=== PATIENT | male | born 1955 | race Caucasian/White ===

== ENCOUNTER 2017-07-27 07:34 | Emergency (ER) | payer OTHER ==
[~2017-07-27] VITALS: Ht 162.6 cm; Wt 100.0 kg
[~2017-07-27 07:34] MED LIST: ALLOPURINOL100 MG PO; ASPIRIN81 M1 PO; CRESTOR40 MG PO; PERCOCET 5/31 TABLET
[2017-07-27 09:38] VITALS: BP 131/88
== END 2017-07-27 09:43 | disposition home or self-care (01) ==
LOC: EME 07:34
PROC: 0HQ0XZZ Repair Scalp Skin, External Approach (ICD-10-PCS; principal; 2017-07-27)
DX: S01.01XA Laceration without foreign body of scalp, initial encounter (principal); I10 Essential (primary) hypertension; M10.9 Gout, unspecified; M19.90 Unspecified osteoarthritis, unspecified site; V43.52XA Car driver injured in collision with other type car in traffic accident, initial encounter; Y92.410 Unspecified street and highway as the place of occurrence of the external cause; Z79.82 Long term (current) use of aspirin; Z87.891 Personal history of nicotine dependence; Z87.442 Personal history of urinary calculi; Z88.0 Allergy status to penicillin
CPT/HCPCS: 70450; 72125; 99281; 99284

== ENCOUNTER 2017-08-11 09:12 | Emergency (ER) | payer OTHER ==
[~2017-08-11] VITALS: Ht 162.6 cm; Wt 101.7 kg
[2017-08-11 09:15] VITALS: BP 150/100
== END 2017-08-11 09:58 | disposition home or self-care (01) ==
LOC: EME 09:12
DX: S01.01XD Laceration without foreign body of scalp, subsequent encounter (principal); Z48.02 Encounter for removal of sutures; V89.2XXD Person injured in unspecified motor-vehicle accident, traffic, subsequent encounter; Z87.891 Personal history of nicotine dependence; Z88.0 Allergy status to penicillin
CPT/HCPCS: 99281; 99284